=== PATIENT | female | born 1965 | race Caucasian/White ===

== ENCOUNTER → 2020-12-17 14:51 | Outpatient (CLI) | payer OTHER, SELFPAY ==
--- NOTE | ~2020-12-17 | US_ITS ---
EXAMINATION: US thyroid DATE: 12/17/2020 15:07 INDICATION: Nontoxic goiter. TECHNIQUE: Multiple ultrasound images of the thyroid were obtained. COMPARISON: None. FINDINGS: The right thyroid lobe measures 3.5 x 0.9 x 1.2 cm. The left thyroid lobe measures 3.8 x 1.1 x 1.3 c m. In the right thyroid lobe, there is a 0.7 cm solid, hypoechoic, honaj-luyx-deny nodule with ill-d efined margin with punctate echogenic foci (TI-RADS TR5). IMPRESSION: 1. Small thyroid nodule. Thyroid ultrasound is recommended in one year. Reviewed, dictated and finalized at location A.
== END ==
PROVIDERS: PCP Family Medicine; Visit Provider Family Medicine
DX: E04.1 Nontoxic single thyroid nodule (principal)
CPT/HCPCS: 76536

== ENCOUNTER → 2021-07-29 08:54 | Outpatient (CLI) | payer OTHER, SELFPAY ==
--- NOTE | ~2021-07-29 | US_ITS ---
EXAMINATION: US retroperitoneal duplex ltd EXAM DATE: 07/29/2021 09:29 INDICATION: Elevated serum creatinine. TECHNIQUE: Multiple grayscale and Doppler images of the kidneys and renal arteries were obtained. T here is no prior study for comparison. FINDINGS: The aorta peak systolic velocity is 90 cm/s. Renal arteries interrogated in several segments from origin to hilum. RIGHT RENAL ARTERY Proximal segment (origin): 143 cm/s. Middle segment: 120 cm/s. Distal segment (hilum): Not visualized LEFT RENAL ARTERY Proximal segment (origin): 159 cm/s. Middle segment: 177 cm/s. Distal segment (hilum): 120 cm/s. IMPRESSION: Renal artery Doppler velocities within normal limits. Reviewed, dictated and finalized at location A. DEVELOPER
--- NOTE | ~2021-07-29 | US_ITS ---
EXAMINATION: US renal BI EXAM DATE: 07/29/2021 09:29 INDICATION: Elevated serum creatinine. TECHNIQUE: Multiple grayscale and Doppler images of the kidneys were obtained (by a technologist who performed the scan) and subsequently reviewed. There is no prior study for comparison. FINDINGS: Right kidney: There is normal contour and echogenicity. It measures 8.6 x 4.3 x 3.9 centimeters. Th ere are no focal renal lesions identified. There is no hydronephrosis. Left kidney: There is normal contour and echogenicity. It measures 8.1 x 5.7 x 4.8 centimeters. The re are no focal renal lesions identified. There is no hydronephrosis. Bladder unremarkable. IMPRESSION: Sonographically unremarkable kidneys. Reviewed, dictated and finalized at location A. ERY MACHINE OPERATOR
== END ==
PROVIDERS: PCP Family Medicine; Visit Provider Family Medicine
DX: R94.4 Abnormal results of kidney function studies (principal); R79.89 Other specified abnormal findings of blood chemistry
CPT/HCPCS: 76775; 93976

== ENCOUNTER → 2021-10-01 08:45 | Outpatient (CLI) | payer OTHER, SELFPAY ==
--- NOTE | ~2021-10-01 | MR_ITS ---
EXAMINATION: MR foot RT wo con DATE: 10/01/2021 09:31 INDICATION: Right foot pain. TECHNIQUE: Magnetic resonance imaging (MRI) of the right foot was performed without intravenous contr ast. Sequences included sagittal T1-weighted FSE and STIR FSE, long-axis PD-weighted FS FSE and PD-we ighted FSE, and short-axis PD-weighted FS FSE and T1-weighted FSE. COMPARISON: None FINDINGS: Bone alignment is normal. There is a nondisplaced transverse fracture of neck of second pro ximal phalanx with low signal fracture line and bone marrow edema. 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 Lisfranc lig ament is normal. The flexor and extensor tendons are normal. IMPRESSION: 1. Nondisplaced transverse fracture of neck of second proximal phalanx. Reviewed, dictated and finalized at location A. [employer] LAMINATING OPERATOR
== END ==
PROVIDERS: Visit Provider Nurse Practitioner Family
DX: M79.671 Pain in right foot (principal); S92.811A Other fracture of right foot, initial encounter for closed fracture
CPT/HCPCS: 73718

== ENCOUNTER → 2021-11-30 08:13 | Outpatient (CLI) | payer OTHER, SELFPAY ==
--- NOTE | ~2021-11-30 | US_ITS ---
EXAMINATION: US thyroid DATE: 11/30/2021 08:26 INDICATION: Nontoxic goiter, unspecified. TECHNIQUE: Multiple ultrasound images of the thyroid were obtained. COMPARISON: Ultrasound 12/17/2020 FINDINGS: The right thyroid lobe measures 3.3 x 1.3 x 1.1 cm. The left thyroid lobe measures 3.6 x 1.0 x 1.2 c m. In the right thyroid lobe, there is a 9 mm solid, hypoechoic, dfaev-xxtw-qmtz nodule with lobulat ed margin and punctate echogenic foci (TI-RADS TR5). IMPRESSION: 1. Small thyroid nodule with increase in size from 12/17/20. Thyroid ultrasound is recommended in one year. Reviewed, dictated and finalized at location B.
== END ==
PROVIDERS: PCP Family Medicine; Visit Provider Family Medicine
DX: E04.1 Nontoxic single thyroid nodule (principal)
CPT/HCPCS: 76536

== ENCOUNTER → 2022-04-01 10:43 | Outpatient (CLI) | payer OTHER, SELFPAY ==
--- NOTE | ~2022-04-01 | DEXA_ITS ---
Bone Density Report Name: MAGDALENA GALLOWAY Age: 57 Sex: Female Ethnicity: White Date of : 1965 Indication: postmenopausal; screening for osteoporosis; Referring Provider: DANIEL STATON Study: Bone densitometry was performed. Exam Date: April 01, 2022 Accession number: [id number] Bone Density: Region BMD T-score Z-score Classification AP Spine (L1-L4) 0.835 -1.9 -0.6 Osteopenia Femoral Neck (Left) 0.641 -1.9 -0.7 Osteopenia Total Hip (Left) 0.820 -1.0 -0.2 Normal Femoral Neck (Right) 0.608 -2.2 -1.0 Osteopenia Total Hip (Right) 0.770 -1.4 -0.6 Osteopenia Total Hip Mean 0.795 -1.2 -0.4 Osteopenia World Health Organization criteria for BMD impression classify patients as: Normal (T-score at or above -1.0), Osteopenia (T-score between -1.0 and -2.5), or Osteoporosis (T-score at or below -2.5). 10-year Fracture Risk(1): Major Osteoporotic Fracture 9.4% Hip Fracture 1.3% Reported Risk Factors: [place] (), Neck BMD=0.608, BMI=25.4 (1) FRAX(R) Version 3.08. Fracture probability calculated for an untreated patient. Fracture probability may be lower if the patient has received treatment. Clinical Information Provided by Patient: Has used the following medications: Vitamin D, Calcium Patient maximum height was 63 Menopause Age: 49 No regular weight bearing exercise Does not regularly consume dairy products Drinks caffeinated beverages Onset of menses at age 13 Number of children 3 Impression: The patient has low bone mass, based on the Right Femoral Neck T-score. The patient has an estimated ten-year risk of hip fracture of 1.3% and an estimated ten-year risk of major fracture of 9.4%, based on the WHO FRAX algorithm. Discussion: BONE DENSITY IS LOW AT ONE OR MORE SKELETAL SITES. This patient's lowest T-score is low at one or more skeletal sites. It meets the World Health Organization's (WHO) criteria for ?low bone mass? (T-score between -1.0 and -2.5). The patient's 10-year risk of fracture as calculated by FRAX is less than the threshold where pharmacological therapy is recommended by the National Osteoporosis Foundation (NOF). However, all treatment decisions require clinical judgment and consideration of individual patient factors, including patient preferences, comorbidities, previous drug use, risk factors not captured in the FRAX model (e.g., frailty, falls, vitamin D deficiency, increased bone turnover, interval significant decline in bone density) and possible under or overestimation of fracture risk by FRAX. The patient should follow a healthful lifestyle (good nutrition with adequate calcium and vitamin D, and appropriate weight-bearing exercise). Follow-Up: Consider repeating this study in 2 to 3 years to reassess this patient's status, or sooner if there is some new cli
== END ==
PROVIDERS: PCP Family Medicine; Visit Provider Family Medicine
DX: S62.30 Unspecified fracture of other metacarpal bone (principal); Z78.0 Asymptomatic menopausal state; M85.89 Other specified disorders of bone density and structure, multiple sites
CPT/HCPCS: 77080

== ENCOUNTER → 2022-11-25 10:46 | Outpatient (CLI) | payer OTHER, SELFPAY ==
--- NOTE | ~2022-11-25 | US_ITS ---
Thyroid ultrasound. Clinical History: Thyroid nodule COMPARISON: 11/30/2021 and 12/17/2020 Findings: Real-time sonography of the thyroid gland was performed. The right lobe measures 3.7 x 1.0 x 1.3 cm. The left lobe measures 4.1 x 1.0 x 1.1 cm. The isthmus is 2 mm in AP diameter. There is an 8 mm heterogeneous hypoechoic nodule at the right mid to lower pole. Subcentimeter cystic nodules are noted bilaterally. Impression: Stable subcentimeter thyroid nodules, as above.. Reviewed, dictated and finalized at location . Impression: Stable subcentimeter thyroid nodules, as above..
== END ==
PROVIDERS: PCP Family Medicine; Visit Provider Family Medicine
DX: E04.1 Nontoxic single thyroid nodule (principal)
CPT/HCPCS: 76536